=== PATIENT | female | born 1995 | race African-American/Black ===

== ENCOUNTER 2020-10-15 15:08 | Emergency (ER) | payer SELFPAY ==
[~2020-10-15] VITALS: Ht 162.6 cm; Wt 82.2 kg
[2020-10-15] MEDS ORDERED: ACETAMINOPHEN 325 MG TAB PO STA (15:24)
[2020-10-15] MEDS ORDERED: ACETAMINOPHEN 325 MG TAB ONE (15:40)
[2020-10-15] MEDS ORDERED: PREDNISONE20 MG PO (15:54)
[2020-10-15] MEDS ORDERED: AZITHROMYCIN250 MG PO (15:54)
[2020-10-15] MEDS ORDERED: VENTOLIN HFA18 GM INH (15:54)
== END 2020-10-15 16:04 | disposition home or self-care (01) ==
LOC: FSED 15:30
DX: B34.9 Viral infection, unspecified (principal); Z88.8 Allergy status to other drugs, medicaments and biological substances
CPT/HCPCS: 83518; 87400; 99283

== ENCOUNTER 2020-10-20 10:27 | Emergency (ER) | payer MEDICARE ==
[~2020-10-20] VITALS: Ht 162.6 cm; Wt 82.2 kg
[~2020-10-20 10:27] MED LIST: AZITHROMYCIN250 MG PO; PREDNISONE20 MG PO; VENTOLIN HFA18 GM INH
[2020-10-20] MEDS ORDERED: CEFDINIR300 MG PO (11:25)
[2020-10-20] MEDS ORDERED: GUAIFEN-CODEINE5 ML PO (11:26)
== END 2020-10-20 11:38 | disposition home or self-care (01) ==
LOC: FSED 10:53
DX: R05 Cough (principal); J20.9 Acute bronchitis, unspecified; B34.9 Viral infection, unspecified
CPT/HCPCS: 81003; 81025; 83518; 87400; 99283

== ENCOUNTER 2021-02-10 21:30 | Emergency (ER) | payer MEDICARE, OTHER ==
[~2021-02-10] VITALS: Ht 162.6 cm; Wt 79.4 kg
[~2021-02-10 21:30] MED LIST changes: +CEFDINIR300 MG PO; +GUAIFEN-CODEINE5 ML PO
[2021-02-10] MEDS ORDERED: CEFDINIR300 MG PO (22:02)
[2021-02-10] MEDS ORDERED: NAPROSYN500 MG PO (22:02)
== END 2021-02-10 22:49 | disposition home or self-care (01) ==
LOC: FSED 21:50
DX: R10.30 Lower abdominal pain, unspecified (principal)
CPT/HCPCS: 81003; 81025; 99282